=== PATIENT | male | born 2000 | race Caucasian/White ===

== ENCOUNTER 2024-01-30 12:58 | Emergency (ER) | payer BC ==
[~2024-01-30] VITALS: Ht 190.5 cm; Wt 108.9 kg
[2024-01-30 13:13] VITALS: TEMP 98.2
[2024-01-30 14:25] VITALS: BP 137/84; O2SAT 97
== END 2024-01-30 14:26 | disposition home or self-care (01) ==
LOC: ER 12:58
DX: S99.822A Other specified injuries of left foot, initial encounter (principal); W18.30XA Fall on same level, unspecified, initial encounter; Y93.89 Activity, other specified; Y92.89 Other specified places as the place of occurrence of the external cause; Y99.8 Other external cause status
CPT/HCPCS: 73630-TC